=== PATIENT | female | born 1990 | race African-American/Black ===

== ENCOUNTER 2022-08-10 15:04 | Emergency (ER) | payer OTHER, MEDICAID, SELFPAY ==
--- NOTE | ~2022-08-10 | XR_ITS ---
EXAMINATION: Cervical, dorsal and lumbar spine. CLINICAL indication: Back pain and neck pain. COMPARISON: None. TECHNIQUE: Lumbar spine 3 views. Dorsal spine 3 views and cervical spine 3 views. FINDINGS: Lumbar spine: There is normal lumbar lordosis. The vertebral heights, alignment and disc heights are normal. There is no visible acute fracture, dislocation or subluxation seen. Dorsal spine: There is normal thoracic kyphosis. The vertebral heights, alignment and disc heights are normal. No fracture, dislocation or lytic process seen. The paravertebral soft tissues are normal. Cervical spine: There is mild straightening of cervical lordosis. The vertebral heights, alignment and disc heights are normal. No visible acute fracture, dislocation or subluxation seen. XR/XR cervical spine 2V IMPRESSION: Unremarkable lumbar spine exam. Unremarkable dorsal spine exam. Unremarkable cervical spine exam.
--- NOTE | ~2022-08-10 | XR_ITS ---
EXAMINATION: Cervical, dorsal and lumbar spine. CLINICAL indication: Back pain and neck pain. COMPARISON: None. TECHNIQUE: Lumbar spine 3 views. Dorsal spine 3 views and cervical spine 3 views. FINDINGS: Lumbar spine: There is normal lumbar lordosis. The vertebral heights, alignment and disc heights are normal. There is no visible acute fracture, dislocation or subluxation seen. Dorsal spine: There is normal thoracic kyphosis. The vertebral heights, alignment and disc heights are normal. No fracture, dislocation or lytic process seen. The paravertebral soft tissues are normal. Cervical spine: There is mild straightening of cervical lordosis. The vertebral heights, alignment and disc heights are normal. No visible acute fracture, dislocation or subluxation seen. XR/XR lumbar spine 2-3V IMPRESSION: Unremarkable lumbar spine exam. Unremarkable dorsal spine exam. Unremarkable cervical spine exam.
--- NOTE | ~2022-08-10 | XR_ITS ---
EXAMINATION: Cervical, dorsal and lumbar spine. CLINICAL indication: Back pain and neck pain. COMPARISON: None. TECHNIQUE: Lumbar spine 3 views. Dorsal spine 3 views and cervical spine 3 views. FINDINGS: Lumbar spine: There is normal lumbar lordosis. The vertebral heights, alignment and disc heights are normal. There is no visible acute fracture, dislocation or subluxation seen. Dorsal spine: There is normal thoracic kyphosis. The vertebral heights, alignment and disc heights are normal. No fracture, dislocation or lytic process seen. The paravertebral soft tissues are normal. Cervical spine: There is mild straightening of cervical lordosis. The vertebral heights, alignment and disc heights are normal. No visible acute fracture, dislocation or subluxation seen. XR/XR thoracic spine 2V IMPRESSION: Unremarkable lumbar spine exam. Unremarkable dorsal spine exam. Unremarkable cervical spine exam.
[2022-08-10 15:16] VITALS: BP 133/89; PULSE 102; O2SAT 100
[2022-08-10 15:17] VITALS: BP 125/80; PULSE 89; RESP 20; TEMP 36.8; O2SAT 99; BMI 23.3
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
[2022-08-10] MEDS: Acetaminophen 325 MG TABLET 650 MG PO (18:44)
== END 2022-08-10 19:05 | disposition home or self-care (01) ==
PROVIDERS: Emergency Provider Emergency Medicine Emergency Medical Services; PCP Nurse Practitioner
DX: S16.1XXA Strain of muscle, fascia and tendon at neck level, initial encounter (principal); S39.012A Strain of muscle, fascia and tendon of lower back, initial encounter; V43.52XA Car driver injured in collision with other type car in traffic accident, initial encounter; Y93.89 Activity, other specified; Y92.410 Unspecified street and highway as the place of occurrence of the external cause; Y99.9 Unspecified external cause status
CPT/HCPCS: 72040; 72070; 72100; 99283